=== PATIENT | female | born 1970 | race Caucasian/White ===

== ENCOUNTER 2017-05-27 15:47 | Outpatient (CLI) | payer BC | END 2017-05-27 15:48 | disposition home or self-care (01) | LOC: BICMAMMO 15:47 | PROVIDERS: ATTEND Obstetrics & Gynecology | DX: Z12.31 Encounter for screening mammogram for malignant neoplasm of breast (principal); Z80.3 Family history of malignant neoplasm of breast | CPT/HCPCS: 77063; 77067 ==

== ENCOUNTER 2019-01-20 13:32 | Emergency (ER) | payer BC ==
[2019-01-20] MEDS ORDERED: Ketorolac Tromethamine 60 MG/2 ML VIAL ONE (15:12)
[2019-01-20] MEDS ORDERED: Diazepam 10 MG/2 ML SYRINGE ONE (15:12)
[2019-01-20] MEDS ORDERED: Morphine 4 MG/ML VIAL ONE (15:17)
[2019-01-20] MEDS ORDERED: Ondansetron ODT 4 MG TAB ONE (15:17)
== END 2019-01-20 17:20 | disposition home or self-care (01) ==
LOC: ERS 13:32
DX: M54.5 Low back pain (principal); F32.9 Major depressive disorder, single episode, unspecified; Z79.899 Other long term (current) drug therapy
CPT/HCPCS: 96372; 99283; J1885; J2270; J3360; Q0162

== ENCOUNTER 2019-03-15 10:04 | Outpatient (CLI) | payer BC ==
--- NOTE | 2019-03-15 10:49 | RAD ---
EXAM: 3 views of the lumbosacral spine HISTORY: Low back pain COMPARISON: 03/10/2012 FINDINGS: 3 views of the lumbosacral spine shows normal height and alignment of the vertebral bodies and intervertebral discs without fracture or subluxation. There is stable mild compression deformity T12 vertebral body with approximately 10% height loss. Small osteophytes are seen at T11/12 . No significant degenerative changes are seen in the lumbar spine. The sacroiliac joints are unremarkable. IMPRESSION: No significant lumbar spine abnormality.
== END 2019-03-15 10:05 | disposition home or self-care (01) ==
LOC: TBSIIMAG 10:04
PROVIDERS: ATTEND Neurological Surgery
DX: M54.5 Low back pain (principal)
CPT/HCPCS: 72100

== ENCOUNTER 2019-07-19 13:26 | Outpatient (CLI) | payer BC ==
--- NOTE | 2019-07-19 14:46 | MRI ---
MRI OF THE LUMBAR SPINE WITHOUT CONTRAST: DATE: 07/19/2019. COMPARISON: None. HISTORY: Low back pain for several years with bilateral hip pain/radiculopathy. TECHNIQUE: Multiplanar, multisequence MR imaging of the lumbar spine is obtained without contrast. FINDINGS: The sagittal STIR IMAGING DEMONSTRATES NO FOCAL AREA OF OSSEOUS MARROW EDEMA. On the basis of 5 lumbar-type vertebral bodies, the conus medullaris terminates at the T12-L1 level. T12-L1: Intervertebral disk height and signal intensity grossly unremarkable with no significant michelle tral canal or neural foraminal stenosis. L1-2: Mild bilateral facet hypertrophy. Intervertebral disk height and signal intensity within norm al limits with no significant central canal or neural foraminal stenosis. L2-3: Mild bilateral facet hypertrophy with no significant central canal or neural foraminal stenosi s. Intervertebral disk height and signal intensity appears within normal limits. L3-4: Disk space narrowing with disk desiccation and mild disk bulge noted. Mild bilateral facet hy pertrophy. There is no significant central canal or neural foraminal stenosis. L4-5: There is disk space narrowing with disk desiccation and mild disk bulge. There is mild bilate ral facet hypertrophy. There is no significant central canal or neural foraminal stenosis. L5-S1: Intervertebral disk height and signal intensity within normal limits. No central canal or ne ural foraminal stenosis. The imaged retroperitoneal structures appear grossly unremarkable. IMPRESSION: Degenerative disk disease at L3-4 and L4-5 with disk desiccation and disk bulge. No significant cent ral canal or neural foraminal stenosis is appreciated on this examination. POS: [facility]
== END 2019-07-19 13:27 | disposition home or self-care (01) ==
LOC: TBSIIMAG 13:26
PROVIDERS: ATTEND Neurological Surgery
DX: M51.16 Intervertebral disc disorders with radiculopathy, lumbar region (principal)
CPT/HCPCS: 72148